=== PATIENT | female | born 1990 | race American Indian/Alaskan Native ===

== ENCOUNTER 2018-06-19 19:32 | Outpatient (CLI) | payer MEDICAID ==
[2018-06-19 20:18] VITALS: BP 112/69
[2018-06-19] MEDS ORDERED: LACTATED RINGERS 500 ML IV ONE (21:02)
--- NOTE | 2018-06-20 00:04 | Ultrasound Report ---
FINAL REPORT PROCEDURE: US OB LIMITED TECHNIQUE: Real-time limited sonographic examination was performed for evaluation of fluid volume fo r each fetus with image documentation (1 or more fetuses). CPT 85048 HISTORY: leaking fluid; FERNANDO COMPARISON: No prior studies are available for comparison. FINDINGS: There is a single fetus in a vertex presentation. The 4 quadrant amniotic fluid volume measures 25 ce ntimeters. heart rate 75 beats per minute IMPRESSION: Single fetus the uterus. Four quadrant amniotic fluid volume 25 centimeters.
== END 2018-06-20 00:20 | disposition home or self-care (01) ==
LOC: TRG 19:32
PROVIDERS: ATTEND Obstetrics & Gynecology
DX: O42.912 Preterm premature rupture of membranes, unspecified as to length of time between rupture and onset of labor, second trimester (principal); Z3A.27 27 weeks gestation of pregnancy
CPT/HCPCS: 59025; 76815

== ENCOUNTER 2018-09-22 09:25 | Inpatient (IN) | payer MEDICAID ==
[2018-09-22] MEDS ORDERED: LACTATED RINGERS 1,000 ML IV SCH ×2 (11:00→14:00)
[2018-09-22 11:12] LABS: Hematocrit 39.5 % (30.3-42.9); Hemoglobin 13.4 gm/dl (10.1-14.3); Mean Corpuscular HGB Conc 34 % (30-34); Mean Corpuscular Volume 92 fl (79-97); Platelet Count 209 K/mm3 (140-440); Red Blood Count 4.29 M/mm3 (3.65-5.03); Red Cell Distribution Width 13.2 % (13.2-15.2)
[2018-09-22] MEDS ORDERED: CERVIDIL VG ONE (11:30)
[2018-09-22] MEDS ORDERED: PHENERGAN PO PRN (13:05)
[2018-09-22] MEDS ORDERED: BRETHINE SUB-Q PRN (13:05)
[2018-09-22] MEDS ORDERED: ZOFRAN IV PRN (13:05)
[2018-09-22] MEDS ORDERED: MINERAL OIL PO PRN (13:05)
[2018-09-22] MEDS ORDERED: BRETHINE IVP PRN (13:05)
[2018-09-22] MEDS ORDERED: STADOL IV PRN (13:05)
[2018-09-22] MEDS ORDERED: XYLOCAINE 2% INFILTRATI ONE (13:05)
--- NOTE | 2018-09-22 13:16 | History and Physical Report ---
History of Present Illness Date of examination: 09/22/18 Date of admission: 09/22/18 09:25 Chief complaint: IOl for postdates History of present illness: This is a 27 yo at 41= weeks here for IOL for postdates. She was a transfer patient. Unremarkable hospital course. Past History Past Medical History: no pertinent history Past Surgical History: no surgical history Family/Genetic History: hypertension - Obstetrical History Expected Date of Delivery: 09/14/18 Actual Gestation: 41 Week(s) 1 Day(s) : 1 Para: 0 Hx # Term Pregnancies: 0 Number of Pregnancies: 0 Spontaneous Abortions: 0 Induced : 0 Number of Living Children: 0 Medications and Allergies Allergies Allergy/AdvReac Type Severity Reaction Status Date / Time No Known Allergies Allergy Verified 09/22/18 09:32 Home Medications Medication Instructions Recorded Confirmed Last Taken Type Ferrous Sulfate [Feosol 325 MG tab] 1 tab PO QDAY 06/19/18 06/19/18 06/19/18 History Pnv No.95/Ferrous Fum/Folic AC 1 each PO QDAY 06/19/18 06/19/18 09/21/18 09:00 History [ Vitamin Tablet] Active Meds: Active Medications Butorphanol Tartrate (Stadol) 2 mg IV Q2H PRN PRN Reason: Pain , Severe (7-10) Ephedrine Sulfate (Ephedrine Sulfate) 10 mg IV Q2M PRN PRN Reason: Hypotension Fentanyl (Sublimaze) 100 mcg IV Q2H PRN PRN Reason: Labor Pain Lactated Ringer's (Lactated Ringers) 1,000 mls @ 125 mls/hr IV DIRECT SARY Lactated Ringer's (Lactated Ringers) 1,000 mls @ 125 mls/hr IV DIRECT SARY Oxytocin/Sodium Chloride (Pitocin/Ns 20 Unit/1000ml Drip) 20 units in 1,000 mls @ 125 mls/hr IV DIRECT SARY Oxytocin/Sodium Chloride (Pitocin/Ns 30 Unit/500ml) 30 units in 500 mls @ 1 mls/hr IV TITR SARY; Protocol Oxytocin/Sodium Chloride (Pitocin/Ns 30 Unit/500ml) 30 units in 500 mls @ 0 mls/hr IV TITR SARY; Protocol Lidocaine (Xylocaine 2%) 20 ml INFILTRATI ONCE ONE Stop: 09/22/18 13:06 Mineral Oil (Mineral Oil) 30 ml PO QHS PRN PRN Reason: Constipation Ondansetron HCl (Zofran) 4 mg IV Q8H PRN PRN Reason: Nausea And Vomiting Review of Systems All systems: negative - Vital Signs Vital signs: Vital Signs Temp Pulse Resp BP 96.8 F L 103 H 20 119/80 09/22/18 10:01 09/22/18 10:01 09/22/18 10:01 09/22/18 10:01 Temp Pulse Resp BP Pulse Ox 96.8 F L 103 H 20 119/80 09/22/18 10:01 09/22/18 10:17 09/22/18 10:01 09/22/18 10:17 - Physical Exam Breasts: Positive: normal Cardiovascular: Regular rate, Normal S1 Lungs: Positive: Clear to auscultation, Normal air movement Abdomen: Positive: normal appearance, soft. Negative: distention, tenderness, guarding Genitourinary (Female): Positive: normal external genitalia, normal perenium Vagina: Positive: normal moisture Uterus: Positive: normal size Anus/Rectum: Positive: normal perianal skin Extremities: Positive: normal Deep Tendon Reflex Grade: Normal +2 - Obstetrical FHR: category 1 Cervical Dilatation: 1 Uterine Contraction Pattern: Regular Uterine Tone Measurement Phase: Contraction Uterine Contraction Intensity: Mild Results Result Diagrams: 09/22/18 10:56 All other labs normal. Assessment and Plan A/P IUP 41 weeks post dates vertex cervixl iol GBS neg
[2018-09-22] MEDS ORDERED: PITOCin/NS 20 UNIT/1000ML DRIP 20 UNITS/1,000 ML BAG IV SCH (14:00)
[2018-09-22] MEDS ORDERED: PITOCin/NS 30 UNIT/500ML 30 UNITS/500 ML BAG IV SCH ×2 (14:00)
[2018-09-22] MEDS: SUBLIMAZE IV PRN ×2 (17:33→21:26)
[2018-09-23] MEDS ORDERED: XYLOCAINE 2% INFILTRATI ONE (01:22)
--- NOTE | 2018-09-23 01:42 | Procedure Note ---
OB Delivery Note - Delivery Date of Delivery: 09/23/18 Surgeon: POLLY MCDERMOTT Estimated blood loss: other (400cc) - Vaginal Delivery presentation: vertex Delivery position: OA Intrapartum events: mult.variable deceleratio Delivery induction: cervidil Delivery augmentation: pitocin Delivery monitor: external FHT, external uterine Route of delivery: Indicators for instrumentation: nonreassuring FHR tracing Delivery placenta: spontaneous Delivery cord: 3 umbilical vessels Episiotomy: none Delivery laceration: 2nd degree Delivery repair: vicryl Anesthesia: local Delivery comments: Patient was noted to have francisco down to the 90s. patient was checked and noted to be c/c +2. She commenced to push baby. A vacuum was applied after bladder drained, position of baby noted [place] and pumped to green section and commenced to constant downward pressure for one push. Baby delivered shoulders easily. viable male infant delivered at 0118. The baby placed on the mom chest with attendance by Peds. Nasopharynx and oropharynx suctioned. The placenta delivered intact with three vessel cord. The baby weight is 7 pounds 5 oz. Apgars 8 and 9. Survey of perineum noted to have a second degree. It was repaired in normal usual fashion. EBL 400 cc. Patient tolerated procedure well. Baby and mom bonding. - Infant A at 1 minute: 8 at 5 minutes: 9 Gender: Male (7 pounds 5 oz)
[2018-09-23] MEDS ORDERED: TORADOL IV PRN (01:43)
[2018-09-23] MEDS ORDERED: MILK OF MAGNESIA PO PRN (01:43)
[2018-09-23] MEDS ORDERED: ZOFRAN IV PRN (01:43)
[2018-09-23] MEDS ORDERED: NORCO 5/325 PO PRN (01:43)
[2018-09-23] MEDS ORDERED: PERCOCET 5/325 PO PRN (01:43)
[2018-09-23] MEDS ORDERED: DULCOLAX PR PRN (01:43)
[2018-09-23] MEDS ORDERED: BENADRYL PO PRN (01:43)
[2018-09-23] MEDS ORDERED: LANSINOH TP PRN (01:43)
[2018-09-23] MEDS ORDERED: PHENERGAN PO PRN (01:43)
[2018-09-23] MEDS ORDERED: TYLENOL PO PRN (01:43)
[2018-09-23] MEDS ORDERED: PHENERGAN PR PRN (01:43)
[2018-09-23] MEDS ORDERED: PITOCin/NS 20 UNIT/1000ML DRIP 20 UNITS/1,000 ML BAG IV SCH (02:00)
[2018-09-23] MEDS ORDERED: SODIUM CHLORIDE FLUSH SYRINGE 10 ML IV NR (02:00)
[2018-09-23] MEDS: TUCKS PAD TP PRN (03:47)
[2018-09-23] MEDS: IBUPROFEN PO SCH ×5 (03:47→23:55)
[2018-09-23] MEDS: PRENATAL VITAMIN PO SCH (11:15)
[2018-09-23] MEDS: COLACE PO SCH ×2 (11:15→22:01)
[2018-09-23 13:14] LABS: Hematocrit 31.2 % (30.3-42.9); Hemoglobin 10.6 gm/dl (10.1-14.3)
[2018-09-24] MEDS: IBUPROFEN PO SCH ×4 (05:45→20:59)
[2018-09-24] MEDS ORDERED: BOOSTRIX IM ONE (06:00)
[2018-09-24] MEDS ORDERED: M-M-R II VACCINE SUB-Q ONE (06:00)
[2018-09-24] MEDS: COLACE PO SCH (10:01)
[2018-09-24] MEDS: PRENATAL VITAMIN PO SCH (10:01)
[2018-09-24] MEDS ORDERED: DERMOPLAST TP PRN (10:30)
[2018-09-25] MEDS: COLACE PO SCH ×2 (00:21→10:38)
[2018-09-25] MEDS ORDERED: IBUPROFEN PO SCH (03:00)
[2018-09-25] MEDS: IBUPROFEN PO SCH (03:13)
[2018-09-25] MEDS: PRENATAL VITAMIN PO SCH (10:36)
--- NOTE | 2018-09-25 12:27 | Progress Note ---
Assessment and Plan A/P PPd2 s/p doing well d/c home with f/u in 4 weeks Subjective - Subjective Date of service: 09/25/18 Principal diagnosis: Interval history: This is a 27 yo at 41= weeks here for IOL for postdates. She was a transfer patient. Unremarkable hospital course. Patient reports: appetite normal, voiding normally, pain well controlled, flatus, ambulating normally [place]: doing well Objective - Vital Signs Latest vital signs: Vital Signs Temp Pulse Resp BP BP Pulse Ox 09/25/18 08:51 97.6 F 58 L 16 120/75 98 09/25/18 00:00 98.2 F 102 H 18 115/70 09/24/18 20:59 18 09/24/18 17:51 98.3 F 95 H 24 94/49 97 Intake and Output 09/24/18 09/25/18 09/25/18 23:59 07:59 15:59 Intake Total 240 200 Balance 240 200 Intake: Oral 240 200 Other: Total, Intake Amount 240 200 # Voids Void 1 1 - Exam Breasts: Present: normal Cardiovascular: Present: Regular rate, Normal S1 Lungs: Present: Clear to auscultation, Normal air movement Abdomen: Present: normal appearance, soft, normal bowel sounds. Absent: distention, tenderness, guarding Vulva: both: normal Uterus: Present: normal, firm, fundal height below umbilicus. Absent: bogginess, tenderness Extremities: Present: normal Deep Tendon Reflex Grade: Normal +2 Incision: Present: normal
--- NOTE | 2018-09-25 12:29 | Discharge Summary ---
Providers - Providers Date of Admission: 09/22/18 09:25 Date of discharge: 09/25/18 Attending physician: POLLY MCDERMOTT MD Primary care physician: POLLY MCDERMOTT MD Hospitalization Reason for admission: induction of labor Delivery: Episiotomy: none Laceration: 2nd degree Incision: normal, dry, intact Other procedures: none complications: none Discharge diagnosis: IUP at term delivered [place] baby: male Hospital course: unremarkable hospital care Condition at discharge: Good Disposition: DC-01 TO HOME OR SELFCARE Plan - Discharge Medications Prescriptions: Ferrous Sulfate [Feosol 325 MG tab] 325 mg PO BID #60 tablet Ibuprofen [Motrin] 600 mg PO Q8H PRN #30 tablet PRN Reason: Pain oxyCODONE /ACETAMINOPHEN [Percocet 5/325] 1 tab PO Q6HR PRN #20 tablet PRN Reason: Pain - Provider Discharge Summary Activity: routine, no sex for 6 weeks, no strenuous exercise Diet: routine Instructions: routine Additional instructions: [] Smoking cessation referral if applicable(refer to patient education folder for contact #) [] Refer to [facility]'s [facility] Booklet Call your doctor immediately for: * Fever > 100.5 * Heavy vaginal bleeding ( >1 pad per hour) * Severe persistent headache * Shortness of breath * Reddened, hot, painful area to leg or breast * Drainage or odor from incision. * Keep incision clean and dry at all times and follow doctor's instructions regarding bathing/showering - Follow up plan Follow up: POLLY MCDERMOTT MD [Primary Care Provider] - 10/22/18
[2018-09-25] MEDS: TUCKS PAD TP PRN (14:35)
[2018-09-25 15:03] VITALS: BP 122/70
== END 2018-09-25 15:18 | disposition home or self-care (01) | DRG 775 ==
LOC: LD 09:25 → OB 09-23 03:27
PROVIDERS: ADMIT Obstetrics & Gynecology; ATTEND Obstetrics & Gynecology
PROC: 10D07Z6 Extraction of Products of Conception, Vacuum, Via Natural or Artificial Opening (ICD-10-PCS; principal; 2018-09-23)
PROC: 0KQM0ZZ Repair Perineum Muscle, Open Approach (ICD-10-PCS; 2018-09-23)
PROC: 3E0P7VZ Introduction of Hormone into Female Reproductive, Via Natural or Artificial Opening (ICD-10-PCS; 2018-09-23)
PROC: 3E0234Z Introduction of Serum, Toxoid and Vaccine into Muscle, Percutaneous Approach (ICD-10-PCS; 2018-09-24)
DX: O76 Abnormality in fetal heart rate and rhythm complicating labor and delivery (principal); Z3A.41 41 weeks gestation of pregnancy; Z37.0 Single live birth; O70.1 Second degree perineal laceration during delivery; Z23 Encounter for immunization; Z82.49 Family history of ischemic heart disease and other diseases of the circulatory system
CPT/HCPCS: 36415; 59200; 85014; 85018; 85027; 86592; 86850; 86900; 86901; 88305; 88307; G0378; A6250; J0595; J2590; J3010; J7120

== ENCOUNTER 2020-11-18 03:00 | Inpatient (IN) | payer MEDICAID ==
[2020-11-18] MEDS ORDERED: OXYTOCIN DRIP 30,000 MILLIUNITS/500 ML BAG IV ONE (03:34)
[2020-11-18] MEDS ORDERED: LACTATED RINGERS 1,000 ML ONE ×2 (03:36→03:37)
[2020-11-18] MEDS: LACTATED RINGERS 1,000 ML IV SCH ×2 (03:43→04:45)
[2020-11-18] MEDS ORDERED: ONDANSETRON 4 MG/2 ML INJ IV PRN ×2 (03:53→07:50)
[2020-11-18] MEDS ORDERED: MINERAL OIL 30 ML ORAL LIQD PO PRN (03:53)
[2020-11-18] MEDS ORDERED: fentaNYL 100 MCG/2 ML INJ IV PRN (03:53)
[2020-11-18] MEDS ORDERED: ePHEDrine SULFATE 50 MG/1 ML INJ IV PRN (03:53)
[2020-11-18] MEDS ORDERED: LIDOCAINE (2%) 20 MG/1 ML VIAL 20 ML MDV INFILTRATI ONE (03:53)
[2020-11-18] MEDS ORDERED: TERBUTALINE 1 MG/1 ML INJ SUB-Q PRN (03:53)
[2020-11-18] MEDS ORDERED: OXYTOCIN DRIP 30 UNITS/500 ML BAG IV SCH ×2 (04:00→07:50)
[2020-11-18 04:17] LABS: Hematocrit 39.3 % (30.3-42.9); Hemoglobin 13.6 gm/dl (10.1-14.3); Mean Corpuscular HGB Conc 35 % (30-34); Mean Corpuscular Volume 91 fl (79-97); Platelet Count 228 K/mm3 (140-440); Red Blood Count 4.33 M/mm3 (3.65-5.03); Red Cell Distribution Width 14.2 % (13.2-15.2)
--- NOTE | 2020-11-18 04:21 | History and Physical Report ---
History of Present Illness Date of examination: 11/18/20 Date of admission: 11/18/20 03:53 Chief complaint: contractions History of present illness: Pt is a 30 year old -[place] female STEPHON 11/17/20 at 40w1d presents with contractions increasing in frequency and intensity for the past two days. She denies vaginal bleeding or leakage of fluid. She has had care at [facility] since 12 wks complicated by obesity, maternal tachycardia s/p cardiology referral. She is GBS Negative. Past History Past Medical History: other (Anxiety; Maternal ) Past Surgical History: no surgical history Family/Genetic History: hypertension Social history: no significant social history - Obstetrical History Expected Date of Delivery: 11/17/20 Actual Gestation: 40 Week(s) 1 Day(s) : 2 Para: 1 Hx # Term Pregnancies: 1 Number of Pregnancies: 0 Spontaneous Abortions: 0 Induced : 0 Number of Living Children: 1 Medications and Allergies Allergies Allergy/AdvReac Type Severity Reaction Status Date / Time No Known Allergies Allergy Verified 09/22/18 09:32 Home Medications Medication Instructions Recorded Confirmed Last Taken Type Pnv No.95/Ferrous Fum/Folic AC 1 each PO QDAY 06/19/18 11/18/20 1 Day Ago History [ Vitamin Tablet] ~11/17/20 Active Meds: Active Medications Ephedrine Sulfate (Ephedrine Sulfate 50 Mg/1 Ml Inj) 10 mg IV Q2M PRN PRN Reason: Hypotension Fentanyl (Fentanyl 100 Mcg/2 Ml Inj) 100 mcg IV Q2H PRN PRN Reason: Pain,Severe (7-10) LABOR PAIN Last Admin: 11/18/20 04:09 Dose: 100 mcg Documented by: Lactated Ringer's (Lactated Ringers) 1,000 mls @ 125 mls/hr IV DIRECT SARY Oxytocin/Sodium Chloride (Pitocin/Ns 30 Unit/500ml) 30 units in 500 mls @ 40 mls/hr IV TITR SARY; Protocol Mineral Oil (Mineral Oil 30 Ml Oral Liqd) 30 ml PO QHS PRN PRN Reason: Constipation Ondansetron HCl (Ondansetron 4 Mg/2 Ml Inj) 4 mg IV Q8H PRN PRN Reason: Nausea And Vomiting Terbutaline Sulfate (Terbutaline 1 Mg/1 Ml Inj) 0.25 mg SUB-Q ONCE PRN PRN Reason: Hyperstimulation/Hypertonicity Review of Systems All systems: negative - Vital Signs Vital signs: Vital Signs Pulse Pulse Ox 76 99 11/18/20 03:26 11/18/20 03:26 Temp Pulse Resp BP Pulse Ox 98.1 F 75 20 110/66 100 11/18/20 03:46 11/18/20 04:14 11/18/20 03:46 11/18/20 03:46 11/18/20 04:14 - Physical Exam Breasts: Positive: deferred Abdomen: Positive: soft (obese, gravid ) Genitourinary (Female): Positive: normal external genitalia Uterus: Positive: enlarged (gravid ) Extremities: Positive: edema (trace ) - Obstetrical FHR: auscultation normal Uterine Contraction Monitor Mode: External Cervical Dilatation: 9 Cervical Effacement Percentage: 100 station: 0 Uterine Contraction Pattern: Regular Uterine Tone Measurement Phase: Resting Uterine Contraction Intensity: Moderate Results All other labs normal. Assessment and Plan A: IUP at 40w1d Transitional Labor Obesity GBS Negative P: Admit to labor and delivery Routine intrapartum care Closely monitor maternal and status
[2020-11-18] MEDS ORDERED: METHYLERGONOVINE MALEATE 0.2 MG/ML VIAL IM ONE (05:13)
--- NOTE | 2020-11-18 05:42 | Procedure Note ---
OB Delivery Note - Delivery Date of Delivery: 11/18/20 Surgeon: RANDOLPH MCDONNELL Estimated blood loss: 200cc - Vaginal Delivery presentation: vertex Delivery position: OA Intrapartum events: PROM->1hr before delivery, meconium, decreased FHT variability Delivery induction: none Delivery augmentation: rupture of membranes Delivery monitor: external FHT, external uterine Route of delivery: Delivery placenta: spontaneous Episiotomy: none Delivery laceration: 2nd degree (perineal ) Delivery repair: vicryl Anesthesia: local, intravenous - A at 1 minute: 8 at 5 minutes: 9 Infant Gender: Male (3507g (7lb 12oz) @ 0507 am)
[2020-11-18] MEDS ORDERED: WITCH HAZEL/ GLYCERIN PAD TP PRN (07:50)
[2020-11-18] MEDS ORDERED: PROMETHAZINE 25 MG TAB PO PRN (07:50)
[2020-11-18] MEDS ORDERED: BENZOCAINE/MENTHOL 20/0.5% TOP SPRAY 56 GM TP PRN (07:50)
[2020-11-18] MEDS ORDERED: IBUPROFEN 600 MG TAB PO SCH ×2 (07:50→08:51)
[2020-11-18] MEDS ORDERED: PROMETHAZINE 25 MG RECT SUPP PR PRN (07:50)
[2020-11-18] MEDS ORDERED: LANOLIN/ZINC/DIMETHICONE (LANSINOH) 7 GM TP PRN ×2 (07:50)
[2020-11-18] MEDS ORDERED: MAGNESIUM HYDROXIDE (MOM) ORAL LIQD UDC PO PRN (07:50)
[2020-11-18] MEDS ORDERED: diphenhydrAMINE 25 MG CAP PO PRN (07:50)
[2020-11-18] MEDS: FERROUS SULFATE 325 MG TAB PO SCH ×2 (09:08→22:17)
[2020-11-18] MEDS: DOCUSATE SODIUM 100 MG CAP PO SCH ×2 (09:09→22:17)
[2020-11-18] MEDS: HYDROcodone/ACETAMINOPHEN 5-325 MG TAB PO PRN ×2 (11:23→17:08)
[2020-11-18] MEDS: IBUPROFEN 800 MG TAB PO SCH ×3 (13:55→23:07)
[2020-11-18 19:05] LABS: Hematocrit 35.6 % (30.3-42.9); Hemoglobin 12.1 gm/dl (10.1-14.3)
[2020-11-19] MEDS: IBUPROFEN 800 MG TAB PO SCH ×3 (02:14→10:50)
[2020-11-19] MEDS ORDERED: MEASLES, MUMPS & RUBELLA 12,500 UNIT/0.5 ML VACCINE SUB-Q ONE (05:42)
[2020-11-19] MEDS ORDERED: TETANUS,DIPH,PERTUSS(ACELL) VACCINE 0.5 ML SYRINGE IM ONE (05:43)
--- NOTE | 2020-11-19 12:08 | Progress Note ---
Assessment and Plan A: PPD#1 s/p at term Obesity P:Routine care Anticipate discharge today with follow up in 2 wks for laceration check Subjective - Subjective Date of service: 11/19/20 Principal diagnosis: s/p at term Interval history: Pt doing well. Reports vaginal soreness that is improved by Dermaplast spray. Patient reports: appetite normal, voiding normally, pain well controlled, ambulating normally : doing well Objective - Vital Signs Latest vital signs: Vital Signs Temp Pulse Resp BP BP Pulse Ox 11/19/20 07:53 97.6 F 77 18 120/61 99 11/19/20 02:14 18 11/19/20 00:38 98.2 F 88 20 102/54 96 11/18/20 20:30 20 11/18/20 17:08 16 11/18/20 16:35 97.7 F 94 H 20 105/52 11/18/20 13:55 16 Intake and Output 11/18/20 11/19/20 11/19/20 22:59 06:59 14:59 Intake Total 360 Output Total 800 Balance -440 Intake: Oral 360 Output: Urine 800 Void 800 Other: Total, Intake Amount 120 Total, Output Amount 600 - Exam Breasts: Present: deferred Abdomen: Present: soft (obese ) Uterus: Present: fundal height at umbilicus Extremities: Present: edema (trace )
--- NOTE | 2020-11-19 12:11 | Discharge Summary ---
Providers - Providers Date of Admission: 11/18/20 03:53 Date of discharge: 11/19/20 Attending physician: RANDOLPH MCDONNELL 11/18/20 07:50 Consult to Slide Machine Tender [CONS] Routine Reason For Exam: assistance with , SNS Primary care physician: RANDOLPH MCDONNELL Hospitalization Reason for admission: active labor Delivery: Procedure details: Please see delivery note Episiotomy: none Laceration: 2nd degree Other procedures: none complications: none Discharge diagnosis: IUP at term delivered [place] baby: male Hospital course: The patient was admitted in active labor and went on to have a spontaneous vaginal delivery which she tolerated well. Her course was uncomplicated, and she met discharge criteria on PPD#1. She will follow up in 2 wks in the office for a BP check. Condition at discharge: Stable Disposition: DC- TO HOME OR SELFCARE - Discharge Diagnoses (1) Term of male Status: Acute (2) Active labor at term Status: Acute (3) Obesity (BMI 30-39.9) Status: Acute Plan - Discharge Medications Prescriptions: Ibuprofen [Motrin] 800 mg PO Q8HR PRN #30 tablet PRN Reason: Pain , Severe (7-10) HYDROcodone/APAP 5-325 [[place] 5/325] 1 each PO Q6HR PRN #15 tablet PRN Reason: Pain - Provider Discharge Summary Activity: routine, no sex for 6 weeks, no heavy lifting 4 weeks, no strenuous exercise Diet: routine Instructions: routine Additional instructions: [] Smoking cessation referral if applicable(refer to patient education folder for contact #) [] Refer to [facility]'s [facility] Booklet Call your doctor immediately for: * Fever > 100.5 * Heavy vaginal bleeding ( >1 pad per hour) * Severe persistent headache * Shortness of breath * Reddened, hot, painful area to leg or breast * Drainage or odor from incision. * Keep incision clean and dry at all times and follow doctor's instructions regarding bathing/showering - Follow up plan Follow up: SANTOS CORNELL, MESSAGE CLERK [Advanced Practice Nurse] - 14 Days (please call to schedule laceration check )
[2020-11-19] MEDS: FERROUS SULFATE 325 MG TAB PO SCH (13:27)
[2020-11-19 17:13] VITALS: BP 122/62
== END 2020-11-19 18:45 | disposition home or self-care (01) | DRG 775 ==
LOC: TRG 03:00 → APU 03:07 → LD 03:34 → TRG 03:53 → OB 07:27
PROVIDERS: ADMIT Obstetrics & Gynecology; ATTEND Obstetrics & Gynecology
PROC: 10E0XZZ Delivery of Products of Conception, External Approach (ICD-10-PCS; principal; 2020-11-18)
PROC: 0KQM0ZZ Repair Perineum Muscle, Open Approach (ICD-10-PCS; 2020-11-18)
PROC: 3E0234Z Introduction of Serum, Toxoid and Vaccine into Muscle, Percutaneous Approach (ICD-10-PCS; 2020-11-19)
DX: O99.214 Obesity complicating childbirth (principal); O99.344 Other mental disorders complicating childbirth; F41.9 Anxiety disorder, unspecified; O76 Abnormality in fetal heart rate and rhythm complicating labor and delivery; O77.0 Labor and delivery complicated by meconium in amniotic fluid; O70.1 Second degree perineal laceration during delivery; Z37.0 Single live birth; Z3A.40 40 weeks gestation of pregnancy; Z20.822 Contact with and (suspected) exposure to COVID-19; Z23 Encounter for immunization
CPT/HCPCS: 36415; 59025; 85014; 85018; 85027; 86592; 86850; 86900; 86901; G0378; A6250; J2590; J3010; J7120; U0003